=== PATIENT | female | born 1970 | race Two or more races ===

== ENCOUNTER → 2016-09-16 | Day surgery (SDC) | payer OTHER ==
--- NOTE | 2016-09-16 15:58 | RADIOLOGY REPORT (SQ) ---
EXAM DESCRIPTION: ARTHRO ELBOW INJECTION; FLUORO/NEEDLE PLACEMENT COMPLETED DATE/TIME: 09/16/2016 3:16 pm REASON FOR STUDY: DISP FX OF HEAD OF LEFT RADIUS S52.122A DISP FX OF HEAD OF LEFT RADIUS, INIT FOR CLOS FX COMPARISON: None. FLUOROSCOPY TIME: 0.4 minute 4 images saved to PACS. LIMITATIONS: None PROCEDURE: Procedure, risks, benefits and alternatives explained to patient who then gave written c onsent. The left elbow was marked and a time-out was called for correct marking verification. Entry site marked using fluoroscopic guidance. Elbow prepped and draped using sterile technique. Local a nesthesia achieved using 1% lidocaine injection. Hypodermic needle introduced into the joint space under direct fluoroscopic visualization. Non-ionic contrast instilled to confirm intra-articular pos ition. Dilute gadolinium solution then injected. Needle removed and entry site covered with steril e bandage. No immediate complications noted. TECHNIQUE: Digital images acquired during fluoroscopy and stored on PACS. Patient immediately take n to the MR suite for additional imaging. INJECTION LOCATION: Left elbow CONTRAST TYPE AND AMOUNT: 2 mL of Isovue. 2-3 mL of dilute ProHance IMPRESSION: SUCCESSFUL NEEDLE PLACEMENT AND INJECTION FOR LEFT ELBOW MR ARTHROGRAM. COMMENT: Quality ID [id number]: Final reports for procedures using fluoroscopy that document radiation exp osure indices, or exposure time and number of fluorographic images (if radiation exposure indices are not available) TECHNICAL DOCUMENTATION: JOB ID: [id number] [employer]- All Rights Reserved
--- NOTE | 2016-09-16 19:49 | RADIOLOGY REPORT (SQ) ---
EXAM DESCRIPTION: MRI LT UPPER JOINT WITH COMPLETED DATE/TIME: 09/16/2016 3:57 pm REASON FOR STUDY: DISP FX OF HEAD OF LEFT RADIUS S52.122A DISP FX OF HEAD OF LEFT RADIUS, INIT FOR CLOS FX COMPARISON: None. TECHNIQUE: Leftelbow images acquired and stored on PACS. Multiplanar images to include fat sensitive sequences as T1, fluid sensitive sequences as T2/STIR, cartilage sensitive sequences as FSPD, and co ntrast sensitive sequences as FST1. LIMITATIONS: None. FINDINGS: BONE MARROW: Mild marrow edema along the posterolateral radial head. Subtle impaction fra cture is suggested here. JOINT DISTENSION: Adequate. No loose bodies. MEDIAL COLLATERAL LIGAMENT COMPLEX: Thickening and ill definition of the proximal aspect of the media l collateral ligament. Regional edema or scar without jb disruption or extravasated in contrast s uggested. MEDIAL EPICONDYLE AND COMMON FLEXOR TENDON: No marrow edema. Common flexor tendon intact. There is patchy edema in the flexor muscles. LATERAL COLLATERAL LIGAMENT: Intact. LATERAL EPICONDYLE AND COMMON EXTENSOR TENDON: Intact. LATERAL ULNAR COLLATERAL LIGAMENT: Irregular fraying and tear. BICEPS TENDON: Intact. TRICEPS TENDON: Intact. ULNAR NERVE: No abnormal signal within the nerve. No enlargement. No regional edema detected. ADJACENT SOFT TISSUES: Appropriate vascular flow voids. Mild edema in the extensor digitorum muscle proximally, potentially related to lateral approach arthrography. OTHER: No other significant finding. IMPRESSION: 1. Lateral ulnar collateral ligament irregular tear. 2. Small area of subtle fracture deformity in the posterolateral radial head. 3. Probable sprain of the medial collateral ligament. 4. Strain, edema in forearm flexors. TECHNICAL DOCUMENTATION: JOB ID: [id number] [employer]- All Rights Reserved
== END ==
LOC: RAD 13:41
PROVIDERS: ATTEND Family Medicine
PROC: BP0 Imaging, Non-Axial Upper Bones, Plain Radiography (ICD-10-PCS; principal; 2016-09-16)
DX: S52.122A Displaced fracture of head of left radius, initial encounter for closed fracture (principal); X58.XXXA Exposure to other specified factors, initial encounter
CPT/HCPCS: 73222; 77002; 24220; A9576

== ENCOUNTER → 2017-08-01 | Emergency (ER) | payer OTHER ==
[~2017-08-01] MED LIST: DEXTROSE 5%-1/2 NORMAL SALINE 1,000 ML IV ONE; FAMOTIDINE INJ/PF 20 MG/2 ML SDV IV ONE; HYDROMORPHONE HCL INJ/PF 2 MG/ML AMPULE IV ONE; HYDROMORPHONE HCL INJ/PF 2 MG/ML AMPULE ONE; KETOROLAC TROMETHAMINE INJ/PF 30 MG/1 ML SDV IV ONE; NORMAL SALINE 1000 ML 1,000 ML IV ONE; ONDANSETRON HCL INJ/PF 4 MG/2 ML SDV IV ONE; TAMSULOSIN HCL 0.4 MG CAP.SR.24H PO ONE
--- NOTE | 2017-08-01 11:17 | ER Document Report ---
ED GI/ - General Chief Complaint: Abdominal Distention Stated Complaint: ABDOMINAL PAIN Time Seen by Provider: 08/01/17 11:12 Notes: 47-year-old female to the emergency department with chief complaint of pain. Patient states that she was at work when she had sudden onset of severe abdominal pain. States that her abdomen started feeling very bloated. States that she had a bowel movement this morning. Pain was so bad had to take ambulance, nothing makes it better or worse. 911 was called. 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 TRAVEL OUTSIDE OF THE [place] IN LAST 30 DAYS: No - HPI Patient complains to provider of: Abdominal pain Onset: Just prior to arrival Timing/Duration: Sudden Quality of pain: Cramping, Stabbing Severity at maximum: Severe Severity in ED: Severe Pain Level: 5 Context: denies: Bad food, Lifting, Out of the country travel, , Recent trauma, Other Location: Other - Diffuse - Related Data Allergies/Adverse Reactions: No Known Allergies Allergy (Unverified 08/01/17 11:24) Past Medical History - General Information source: Patient - Social History Smoking Status: Never Smoker Frequency of alcohol use: None Drug Abuse: None Lives with: Family Family History: Reviewed & Not Pertinent - Medical History Medical History: Negative Review of Systems - Review of Systems Constitutional: No symptoms reported EENT: No symptoms reported Cardiovascular: No symptoms reported Respiratory: No symptoms reported Gastrointestinal: See HPI, Abdomen distended, Abdominal pain, Nausea Genitourinary: No symptoms reported Female Genitourinary: No symptoms reported Musculoskeletal: No symptoms reported Skin: No symptoms reported Hematologic/Lymphatic: No symptoms reported Neurological/Psychological: No symptoms reported Physical Exam - Vital signs Interpretation: Hypertensive, Tachycardic - General General appearance: Appears well, Alert, Anxious In distress: Moderate - HEENT Head: Normocephalic, Atraumatic Eyes: Normal Pupils: PERRL - Respiratory Respiratory status: No respiratory distress Chest status: Nontender Breath sounds: Normal Chest palpation: Normal - Cardiovascular Rhythm: Tachycardia Heart sounds: Normal auscultation Murmur: No - Abdominal Inspection: Normal Distension: No distension Bowel sounds: Normal Tenderness: Tender. No: Guarding, Rebound Organomegaly: No organomegaly - Back Back: Normal, Nontender - Extremities General upper extremity: Normal inspection, Nontender, Normal color, Normal ROM , Normal temperature General lower extremity: Normal inspection, Nontender, Normal color, Normal ROM , Normal temperature, Normal weight bearing. No: Danyell's sign - Neurological Neuro grossly intact: Yes Cognition: Normal Orientation: AAOx4 Shakeel Coma Scale Eye Opening: Spontaneous [place] Coma Scale Verbal: Oriented [place] Coma Scale Motor: Obeys Commands [place] Coma Scale Total: 15 Speech: Normal Motor strength normal: LUE, RUE, LLE, RLE Sensory: Normal - Psychological Associated symptoms: Normal affect, Normal mood - Skin Skin Temperature: Warm Skin Moisture: Dry Skin Color: Normal Course - Re-evaluation Re-evalutation: 08/01/17 11:17 Uncertain etiology of patient's symptoms. Questionable distention according to patient but no significant distention on physical exam. Hyperactive bowel sounds. Stat bedside ultrasound performed which did not show any significant free fluid in the pelvis or in the right upper quadrant. Will order stat CT scan without contrast to look for possible kidney stone this is negative may repeat CT scan with IV contrast. 08/01/17 14:39 Patient still complaining of pain in holding her right upper quadrant. CT concerning in my opinion for fairly dilated stomach concerning for possible gastric outlet obstruction. Consulted with the radiologist with regards to my concerns but radiologist did not feel that this was clearance representative of an obstruction. I ordered an ultrasound of the abdomen because because most of her pain is in the right upper quadrant. Ultrasound shows a uric acid stone in the right kidney but no obvious dysfunction of the gallbladder. At this time I feel uncomfortable stating that this is not a real presentation this patient seems quite reliable. I am asking surgery to see patient and recommendations and at this time. 08/01/17 14:47 At this time patient is still quite uncomfortable. I am ordering a upper GI. Will reassess. 08/01/17 15:18 Surgeon has seen patient, Dr. Ba. He is in agreement with me that patient is concerning for a gastric outlet obstruction. Will place an NG tube in. Keep n.p.o. and will get upper GI. Currently immediate upper GI is unavailable and will not be available until 5 PM 08/01/17 15:58 Dr. Ba is seen the patient. Recommends nasogastric tube insertion. NG tube was placed. Radiology expecting to arrive around 1700 upper GI and small bowel series. 08/01/17 15:58 Abdomen/Pelvis CT 08/01/17 11:13 IMPRESSION: Diffuse diverticulosis. No acute findings. Abdomen Ultrasound 08/01/17 12:33 IMPRESSION: Probable 4 mm uric acid stone in the right kidney. No hydronephrosis. Laboratory 08/01/17 08/01/17 08/01/17 11:00 11:00 11:00 WBC 9.4 RBC 4.35 Hgb 15.1 Hct 44.2 MCV 102 H MCH 34.9 H MCHC 34.3 RDW 13.3 Plt Count 327 Seg Neutrophils % 74.6 Lymphocytes % 19.5 Monocytes % 4.2 Eosinophils % 1.3 Basophils % 0.4 Absolute Neutrophils 7.0 Absolute Lymphocytes 1.8 Absolute Monocytes 0.4 Absolute Eosinophils 0.1 Absolute Basophils 0.0 Sodium 144.1 Potassium 4.4 Chloride 105 Carbon Dioxide 29 Anion Gap 10 BUN 22 H Creatinine 0.71 Est GFR ( Amer) > 60 Est GFR (Non-Af Amer) > 60 Glucose 91 Calcium 9.6 Total Bilirubin 0.2 Direct Bilirubin 0.2 Neonat Total Bilirubin Not Reportable Neonat Direct Bilirubin Not Reportable Neonat Indirect Bili Not Reportable AST 32 ALT 41 Alkaline Phosphatase 49 Troponin I < 0.012 Total Protein 7.4 Albumin 4.5 Lipase 188.1 Urine Color Urine Appearance Urine pH Ur Specific [place] Urine Protein Urine Glucose (UA) Urine Ketones Urine Blood Urine Nitrite Urine Bilirubin Urine Urobilinogen Ur Leukocyte Esterase Urine WBC (Auto) Urine RBC (Auto) Squamous Epi Cells Auto Urine Mucus (Auto) Urine Ascorbic Acid Urine HCG, Qual 08/01/17 11:15 WBC RBC Hgb Hct MCV MCH MCHC RDW Plt Count Seg Neutrophils % Lymphocytes % Monocytes % Eosinophils % Basophils % Absolute Neutrophils Absolute Lymphocytes Absolute Monocytes Absolute Eosinophils Absolute Basophils Sodium Potassium Chloride Carbon Dioxide Anion Gap BUN Creatinine Est GFR ( Amer) Est GFR (Non-Af Amer) Glucose Calcium Total Bilirubin Direct Bilirubin Neonat Total Bilirubin Neonat Direct Bilirubin Neonat Indirect Bili AST ALT Alkaline Phosphatase Troponin I Total Protein Albumin Lipase Urine Color YELLOW Urine Appearance CLEAR Urine pH 5.[address] [place] 1.016 Urine Protein NEGATIVE Urine Glucose (UA) NEGATIVE Urine Ketones NEGATIVE Urine Blood SMALL H Urine Nitrite NEGATIVE Urine Bilirubin NEGATIVE Urine Urobilinogen NEGATIVE Ur Leukocyte Esterase NEGATIVE Urine WBC (Auto) 0 Urine RBC (Auto) 0 Squamous Epi Cells Auto 1 Urine Mucus (Auto) RARE Urine Ascorbic Acid NEGATIVE Urine HCG, Qual NEGATIVE 08/01/17 16:05 NG tube has been placed. Dr. Ba was general surgery is following. Awaiting small bowel follow-through study and upper GI study. If everything looks negative will follow advise the surgeon but more likely patient will need to be admitted. Will consult with my colleague Dr. Perez for following the patient and looking at the results of the GI studies and admit versus discharge. Discharge information has been applied and prescriptions have been written in the event that she is discharged but more likely patient will need to be admitted. - Laboratory Result Diagrams: 08/01/17 11:00 08/01/17 11:00 Laboratory results interpreted by me: 08/01/17 08/01/17 08/01/17 11:00 11:00 11:15 MCV 102 H MCH 34.9 H BUN 22 H Urine Blood SMALL H - EKG Interpretation by Me EKG shows normal: Sinus rhythm, [place], Intervals, QRS Complexes, ST-T Waves Discharge - Discharge Clinical Impression: Acute abdominal pain in right upper quadrant Condition: Good Instructions: Abdominal Pain ([facility]), Pain Medication Injection ([facility]), Toradol Injection ([facility]), Antinausea Medication ([facility]) Additional Instructions: Please return in 12 or 24 hours for worsening abdominal pain. It will be very important that you follow-up with your regular doctor for repeat evaluation in the event that you are discharged home. If you are unable to be seen by your regular doctor and you feel like your pain is not getting better but getting worse please return. We will reevaluate you in the emergency department. Prescriptions: Docusate Sodium [Colace 100 mg Capsule] 100 mg PO BID 15 Days #30 capsule Hydrocodone/Acetaminophen [[place] 5-325 mg Tablet] 1 tab PO TID PRN 3 Days #9 tablet PRN Reason: Ondansetron [Zofran Odt 4 mg Tablet] 1 - 2 tab PO Q4H PRN #15 tab.rapdis PRN Reason: For Nausea/Vomiting Referrals: ERIK BA MD [ACTIVE STAFF] - Follow up in 3-5 days KIMBERLY BOURNE MD [Primary Care Provider] - 08/02/17 8:00 am
--- NOTE | 2017-08-01 11:56 | RADIOLOGY REPORT (SQ) ---
EXAM DESCRIPTION: CT ABD/PELVIS NO ORAL OR IV COMPLETED DATE/TIME: 08/01/2017 11:36 am REASON FOR STUDY: abdominal pain COMPARISON: None. TECHNIQUE: CT scan of the abdomen and pelvis performed without intravenous or oral contrast. Images reviewed with lung, soft tissue, and bone windows. Reconstructed coronal and sagittal MPR images revi ewed. All images stored on PACS. All CT scanners at this facility use dose modulation, iterative reconstruction, and/or weight based d osing when appropriate to reduce radiation dose to as low as reasonably achievable (ALARA). [facility]: Dose Right [facility]: CareDose [facility]: Dose Right [facility]: Teradose 4D [facility]: [employer] RADIATION DOSE: CT Rad equipment meets quality standard of care and radiation dose reduction techniq ues were employed. CTDIvol: 7.3 mGy. DLP: 391 mGy-cm.mGy. LIMITATIONS: None. FINDINGS: LOWER CHEST: No significant findings. No nodules or infiltrates. NON-CONTRASTED LIVER, SPLEEN, ADRENALS: Evaluation limited by lack of IV contrast. No identified sign ificant masses. PANCREAS: No masses. No peripancreatic inflammatory changes. GALLBLADDER: No identified stones by CT criteria. No inflammatory changes to suggest cholecystitis. RIGHT KIDNEY AND URETER: No suspicious masses. Assessment limited by lack of IV contrast. No signif icant calcifications. No hydronephrosis or hydroureter. LEFT KIDNEY AND URETER: No suspicious masses. Assessment limited by lack of IV contrast. No signifi cant calcifications. No hydronephrosis or hydroureter. AORTA AND RETROPERITONEUM: No aneurysm. No retroperitoneal masses or adenopathy. BOWEL AND PERITONEAL CAVITY: Diffuse diverticulosis, more so in the descending and sigmoid colon. No inflammatory changes. No ascites or free air. APPENDIX: Surgically absent. PELVIS, BLADDER, AND ABDOMINAL WALL:No abnormal masses. No free fluid. Bladder normal. BONES: No significant findings. OTHER: No other significant finding. IMPRESSION: Diffuse diverticulosis. No acute findings. COMMENT: Quality ID # [id number]: Final reports with documentation of one or more dose reduction techniques (e.g., Automated exposure control, adjustment of the mA and/or kV according to patient size, use of iterative reconstruction technique) TECHNICAL DOCUMENTATION: JOB ID: [id number] [employer]- All Rights Reserved Reading location - IP/workstation name: [email or web address]
[2017-08-01 12:07] LABS: APPEARANCE,URINE CLEAR; BILIRUBIN,URINE NEGATIVE (NEGATIVE); COLOR,URINE YELLOW; GLUCOSE, URINE NEGATIVE (NEGATIVE); KETONES,URINE NEGATIVE (NEGATIVE); LEUKOCYTE ESTERASE,URINE NEGATIVE (NEGATIVE); NITRITE,URINE NEGATIVE (NEGATIVE); PROTEIN,URINE NEGATIVE (NEGATIVE); URINE SPECIFIC GRAVITY 1.016; UROBILINOGEN,URINE NEGATIVE mg/dL (<2.0)
[2017-08-01 12:58] LABS: ABSOLUTE EOSINOPHILS # (AUTO) 0.1 10^3/uL (0.0-0.6); ABSOLUTE LYMPHOCYTES (AUTO) 1.8 10^3/uL (0.5-4.7); ABSOLUTE MONOCYTES (AUTO) 0.4 10^3/uL (0.1-1.4); BASOPHILS % (AUTO) 0.4 % (0-2); EOSINOPHILS % (AUTO) 1.3 % (0-6); HEMATOCRIT 44.2 % (36.0-47.0); HEMOGLOBIN 15.1 g/dL (12.0-15.5); LYMPHOCYTES % (AUTO) 19.5 % (13-45); MEAN CORPUSCULAR HEMOGLOBIN 34.9 pg (27.0-33.4); MEAN CORPUSCULAR HGB CONC 34.3 g/dL (32.0-36.0); MEAN CORPUSCULAR VOLUME 102 fl (80-97); MONOCYTES % (AUTO) 4.2 % (3-13); PLATELET COUNT 327 10^3/uL (150-450); RED BLOOD COUNT 4.35 10^6/uL (3.72-5.28); RED CELL DISTRIBUTION WIDTH 13.3 % (11.5-14.0); SEGMENTED NEUTROPHILS % (AUTO) 74.6 % (42-78); TOTAL CELLS COUNTED % (AUTO) 100 %; WHITE BLOOD COUNT 9.4 10^3/uL (4.0-10.5)
[2017-08-01 13:03] LABS: ALANINE AMINOTRANSFERASE 41 U/L (9-52); ALBUMIN 4.5 g/dL (3.5-5.0); ALKALINE PHOSPHATASE 49 U/L (38-126); ANION GAP 10 (5-19); ASPARTATE AMINO TRANSFERASE 32 U/L (14-36); BILIRUBIN,DIRECT 0.2 mg/dL (0.0-0.4); BILIRUBIN,TOTAL 0.2 mg/dL (0.2-1.3); BLOOD UREA NITROGEN 22 mg/dL (7-20); CALCIUM 9.6 mg/dL (8.4-10.2); CARBON DIOXIDE 29 mmol/L (22-30); CHLORIDE 105 mmol/L (98-107); GLUCOSE 91 mg/dL (75-110); LIPASE 188.1 U/L (23-300); POTASSIUM 4.4 mmol/L (3.6-5.0); SODIUM 144.1 mmol/L (137-145); TOTAL PROTEIN 7.4 g/dL (6.3-8.2)
--- NOTE | 2017-08-01 13:35 | RADIOLOGY REPORT (SQ) ---
EXAM DESCRIPTION: U/S ABDOMEN LIMITED W/O DOP COMPLETED DATE/TIME: 08/01/2017 1:20 pm REASON FOR STUDY: ruq pain COMPARISON: None. TECHNIQUE: Dynamic and static grayscale images acquired of the abdomen and recorded on PACS. Renano nal selected color Doppler and spectral images recorded. LIMITATIONS: None. FINDINGS: PANCREAS: No masses. Visualized pancreatic duct normal caliber. LIVER: No masses. Echotexture normal. LIVER VASCULATURE: Normal directional flow of the main portal vein and hepatic veins. GALLBLADDER: No stones. Normal wall thickness. No pericholecystic fluid. ULTRASOUND-DETECTED GARRETT'S SIGN: Negative. INTRAHEPATIC DUCTS AND COMMON DUCT: CBD and intrahepatic ducts normal caliber. No filling defects. INFERIOR VENA CAVA: Normal flow. AORTA: No aneurysm. RIGHT KIDNEY: Normal size. Normal echogenicity. No solid or suspicious masses. No hydronephros is. 4 mm hyperechoic lesion with no posterior shadowing. This probably is a small uric acid stone which are not visualized on CT. PERITONEAL AND RIGHT PLEURAL SPACE: No ascites or effusions. OTHER: No other significant findings. IMPRESSION: Probable 4 mm uric acid stone in the right kidney. No hydronephrosis. TECHNICAL DOCUMENTATION: JOB ID: [id number] [employer]- All Rights Reserved Reading location - IP/workstation name: [email or web address]
--- NOTE | 2017-08-01 16:36 | RADIOLOGY REPORT (SQ) ---
EXAM DESCRIPTION: KUB/ABDOMEN (SINGLE VIEW) COMPLETED DATE/TIME: 08/01/2017 4:16 pm REASON FOR STUDY: NG tube placement COMPARISON: None. NUMBER OF VIEWS: One view. TECHNIQUE: Supine radiographic image of the abdomen acquired. LIMITATIONS: None. FINDINGS: NG tube is present tip overlying the cardiac portion of the stomach with side port slightl y above the gastroesophageal junction, could be advanced approximately 8-10 cm for more ideal placeme nt. Lungs are clear. Scattered bowel gas over the upper abdomen. OTHER: No other significant finding. IMPRESSION: NG tube is present tip overlying the cardiac portion of the stomach with side port sligh tly above the gastroesophageal junction, could be advanced approximately 8-10 cm for more ideal place ment. TECHNICAL DOCUMENTATION: JOB ID: [id number] 2010 [employer]- All Rights Reserved Reading location - IP/workstation name: [email or web address]
--- NOTE | 2017-08-01 17:31 | PDOC H&P ---
History of Present Illness Admission Date/PCP: 08/01/17 16:49 KIMBERLY BOURNE MD Patient complains of: Right upper quadrant abdominal pain, nausea. History of Present Illness: ARCHANA WASSERMAN is a 47 year old female with a 2-3 day history of intermittent right upper quadrant abdominal pain. Today, her pain became severe and unrelenting. She reports a sharp, stabbing pain in her right upper quadrant. It does not radiate. Her abdomen has become distended. The patient reports " It looks like I am ". Nothing makes her pain better. Palpation and movement make her pain worse. Patient has had severe nausea, but has not vomited. The patient has not eaten since 8 AM. Patient denies any history of ingestion of undigestible materials (hair, plastic, etc.). She denies the use of caffeine, nicotine, alcohol, steroids. She has taken ibuprofen for approximately 1 week. No more than 1-2 doses per day. Past Medical History Renal/ Medical History: Reports: Other - Uterine fibroids Past Surgical History Past Surgical History: Reports: Tubal Ligation Social History Lives with: Family Smoking Status: Never Smoker Family History Family History: Reviewed & Not Pertinent Parental Family History Reviewed: Yes Children Family History Reviewed: Yes Sibling(s) Family History Reviewed.: Yes Medication/Allergy Home Medications: Docusate Sodium [Colace 100 mg Capsule] 100 mg PO BID 15 Days #30 capsule Hydrocodone/Acetaminophen [[place] 5-325 mg Tablet] 1 tab PO TID PRN 3 Days #9 tablet 08/01/17 Ondansetron [Zofran Odt 4 mg Tablet] 1 - 2 tab PO Q4H PRN #15 tab.rapdis Allergies/Adverse Reactions: No Known Allergies Allergy (Unverified 08/01/17 11:24) Review of Systems Constitutional: ABSENT: chills, fatigue, fever(s) Eyes: ABSENT: visual disturbances Ears: ABSENT: hearing changes Nose, Mouth, and Throat: ABSENT: sore throat Cardiovascular: ABSENT: chest pain, dyspnea on exertion, edema, palpitations Respiratory: ABSENT: cough, dyspnea, hemoptysis Gastrointestinal: PRESENT: abdominal pain, bloating, nausea. ABSENT: vomiting Genitourinary: PRESENT: hematuria - Recently treated and resolved. Musculoskeletal: ABSENT: deformity, joint swelling Integumentary: ABSENT: erythema, pruritus, rash Neurological: ABSENT: abnormal speech, confusion, lack of coordination, memory loss, tingling, tremor(s) Psychiatric: ABSENT: anxiety, depression, hallucinations Endocrine: ABSENT: cold intolerance, heat intolerance Hematologic/Lymphatic: ABSENT: easy bleeding, easy bruising Physical Exam General appearance: PRESENT: cooperative, mild distress, well-developed Head exam: PRESENT: atraumatic, normocephalic Eye exam: PRESENT: EOMI, PERRLA Mouth exam: PRESENT: moist, neck supple Neck exam: ABSENT: lymphadenopathy, meningismus, tenderness, thyromegaly, tracheal deviation Respiratory exam: PRESENT: clear to auscultation praveena. ABSENT: accessory muscle use, chest wall tenderness, rales, retraction, rhonchi, stridor, tachypnea, wheezes Cardiovascular exam: PRESENT: tachycardia - Mild Pulses: PRESENT: normal radial pulses Vascular exam: PRESENT: normal capillary refill. ABSENT: pallor GI/Abdominal exam: PRESENT: distended, tenderness - Moderate tenderness without signs of peritonitis.. ABSENT: guarding, rebound Extremities exam: ABSENT: joint swelling, pedal edema, tenderness Musculoskeletal exam: PRESENT: normal inspection Neurological exam: PRESENT: alert, awake, oriented to person, oriented to place , oriented to time, oriented to situation, reflexes normal, CN II-XII grossly intact, motor sensory deficit, normal gait Psychiatric exam: PRESENT: anxious. ABSENT: agitated, depressed Skin exam: PRESENT: normal color. ABSENT: cyanosis, erythema, jaundice Results Impressions: KUB X-Ray 08/01/17 00:00 IMPRESSION: NG tube is present tip overlying the cardiac portion of the stomach with side port slightly above the gastroesophageal junction, could be advanced approximately 8-10 cm for more ideal placement. Abdomen/Pelvis CT 08/01/17 11:13 IMPRESSION: Diffuse diverticulosis. No acute findings. Abdomen Ultrasound 08/01/17 12:33 IMPRESSION: Probable 4 mm uric acid stone in the right kidney. No hydronephrosis. Assessment & Plan - Diagnosis (1) Acute abdominal pain in right upper quadrant Is this a current diagnosis for this admission?: Yes (2) Gastric outflow obstruction Is this a current diagnosis for this admission?: Yes - Plan Summary Plan Summary: This is a 47-year-old female with right upper quadrant abdominal pain severe nausea. I have reviewed her CT scan personally. She is a very dilated stomach with nondilated small bowel. She is diaphoretic and nauseated. I suspect she is experiencing acute gastric distention. Reason for this is currently unknown. She may be experiencing a gastric outlet obstruction of some kind. Right upper quadrant ultrasound is essentially normal, aside from a renal stone. I will admit the patient, administer IV fluids, and obtain an upper GI series. This will help ascertain the presence of a gastric outlet obstruction. Further recommendations will depend on patient's workup, which is ongoing.
--- NOTE | 2017-08-01 17:54 | EKG REPORT ---
SEVERITY:- NORMAL ECG - SINUS RHYTHM : Confirmed by: Alexander Lindsey MD 01-Aug-2017 17:54:33
--- NOTE | 2017-08-01 18:33 | RADIOLOGY REPORT (SQ) ---
EXAM DESCRIPTION: UGI SERIES COMPLETED DATE/TIME: 08/01/2017 6:17 pm REASON FOR STUDY: Abdominal pain COMPARISON: CT of the abdomen dated 08/01/2017. TECHNIQUE: Under fluoroscopic guidance, patient ingested water soluble contrast. Fluoroscopic spot i mages and routine radiographic images acquired and stored on PACS. 12 MM BARIUM TABLET GIVEN: No. LIMITATIONS: Patient reported significant bloating during procedure. Contrast was stopped at 200 cc due to discomfort. FLUOROSCOPY TIME: FLUORO TIME: 2 minutes 22 images saved to PACS. FINDINGS: NEUROMUSCULAR COORDINATION OF SWALLOW: NG tube in place, not evaluated. ESOPHAGEAL MOTILITY: Unable to evaluate due to NG-tube. ESOPHAGEAL MUCOSA: Not evaluated due to NG-tube. GASTRO-ESOPHAGEAL JUNCTION: No hiatal hernia or reflux. STOMACH: Normal without masses or ulcerations. GASTRIC OUTLET: Significant delay in emptying. Narrowing pylorus. DUODENAL BULB: Unable to evaluate due to lack contrast. DUODENUM: Unable to evaluate due to lack of contrast. PROXIMAL JEJUNUM: Unable to evaluate due to lack contrast. NON-GI TRACT STRUCTURES: NG-tube was noted on prior study. OTHER: No other significant finding. IMPRESSION: Narrowing at the pylorus with significant delay in emptying. Recommend direct visualiza tion for better characterization. COMMENT: Quality ID [id number]: Final reports for procedures using fluoroscopy that document radiation exp osure indices, or exposure time and number of fluorographic images (if radiation exposure indices are not available) TECHNICAL DOCUMENTATION: JOB ID: [id number] [employer]- All Rights Reserved Reading location - IP/workstation name: [email or web address]
== END | disposition left against medical advice (07) ==
LOC: ER 10:55 → UNDOADMIN 16:49 → EH 16:49 → UNDODISIN 19:15
DX: R10.11 Right upper quadrant pain (principal); K56.699 Other intestinal obstruction unspecified as to partial versus complete obstruction; R14.0 Abdominal distension (gaseous)
CPT/HCPCS: 93005; 36415; 83690; 85025; 81025; 80053; 81001; 84484; 74247; 74018; 76705; 74176; 93010; J1885; J1170; J2405; J7030; S0028

== ENCOUNTER 2017-12-05 13:52 | Emergency (ER) | payer OTHER ==
[2017-12-05] MEDS ORDERED: ONDANSETRON HCL INJ/PF 4 MG/2 ML SDV IV ONE (14:24)
[2017-12-05] MEDS ORDERED: MORPHINE SULFATE 10 MG/ML INJ IV ONE ×2 (14:24→17:09)
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
[2017-12-05 15:38] LABS: ABSOLUTE BASOPHILS # (AUTO) 0.1 10^3/uL (0.0-0.2); ABSOLUTE EOSINOPHILS # (AUTO) 0.1 10^3/uL (0.0-0.6); ABSOLUTE LYMPHOCYTES (AUTO) 2.5 10^3/uL (0.5-4.7); ABSOLUTE MONOCYTES (AUTO) 0.9 10^3/uL (0.1-1.4); ABSOLUTE NEUT (AUTO) 7.1 10^3/uL (1.7-8.2); BASOPHILS % (AUTO) 1.2 % (0-2); EOSINOPHILS % (AUTO) 0.5 % (0-6); HEMATOCRIT 42.7 % (36.0-47.0); HEMOGLOBIN 14.7 g/dL (12.0-15.5); LYMPHOCYTES % (AUTO) 23.3 % (13-45); MEAN CORPUSCULAR HEMOGLOBIN 33.8 pg (27.0-33.4); MEAN CORPUSCULAR HGB CONC 34.5 g/dL (32.0-36.0); MEAN CORPUSCULAR VOLUME 98 fl (80-97); MONOCYTES % (AUTO) 8.2 % (3-13); PLATELET COUNT 343 10^3/uL (150-450); RED BLOOD COUNT 4.36 10^6/uL (3.72-5.28); RED CELL DISTRIBUTION WIDTH 14.6 % (11.5-14.0); SEGMENTED NEUTROPHILS % (AUTO) 66.8 % (42-78); TOTAL CELLS COUNTED % (AUTO) 100 %; WHITE BLOOD COUNT 10.6 10^3/uL (4.0-10.5)
[2017-12-05 15:45] LABS: INTERNATIONAL RATION (INR) 0.88; PROTHROMBIN TIME 12.4 SEC (11.4-15.4)
[2017-12-05 16:04] LABS: ANION GAP 13 (5-19); BLOOD UREA NITROGEN 14 mg/dL (7-20); CALCIUM 9.7 mg/dL (8.4-10.2); CARBON DIOXIDE 21 mmol/L (22-30); CHLORIDE 108 mmol/L (98-107); GLUCOSE 81 mg/dL (75-110); POTASSIUM 4.1 mmol/L (3.6-5.0)
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
[2017-12-05 17:35] VITALS: BP 176/103
[2017-12-05 17:49] LABS: APPEARANCE,URINE CLEAR; BILIRUBIN,URINE NEGATIVE (NEGATIVE); COLOR,URINE YELLOW; GLUCOSE, URINE NEGATIVE (NEGATIVE); KETONES,URINE NEGATIVE (NEGATIVE); LEUKOCYTE ESTERASE,URINE NEGATIVE (NEGATIVE); NITRITE,URINE NEGATIVE (NEGATIVE); PROTEIN,URINE NEGATIVE (NEGATIVE); URINE SPECIFIC GRAVITY 1.008; UROBILINOGEN,URINE NEGATIVE mg/dL (<2.0)
[2017-12-05] MEDS ORDERED: OXYCODONE-ACETAMINOPHEN 5-325 MG TABLET PO ONE (18:13)
== END 2017-12-05 18:27 | disposition home or self-care (01) ==
LOC: ER 13:52
DX: R10.30 Lower abdominal pain, unspecified (principal); Y04.2XXA Assault by strike against or bumped into by another person, initial encounter; Y92.199 Unspecified place in other specified residential institution as the place of occurrence of the external cause; Y99.0 Civilian activity done for income or pay; I10 Essential (primary) hypertension; Z90.710 Acquired absence of both cervix and uterus
CPT/HCPCS: 96376; 99284; 96374; 96375; 36415; 85025; 85610; 85730; 80048; 81001; 74177; J2270; J2405

== ENCOUNTER 2020-01-07 12:09 | Emergency (ER) | payer OTHER ==
[2020-01-07] MEDS ORDERED: ONDANSETRON 4 MG TAB.RAPDIS PO ONE (13:05)
[2020-01-07] MEDS ORDERED: ACETAMINOPHEN 325 MG TABLET PO ONE (13:05)
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
[2020-01-07 14:21] VITALS: BP 163/91
== END 2020-01-07 14:21 | disposition home or self-care (01) ==
LOC: ER 12:09
DX: S06.0X0A Concussion without loss of consciousness, initial encounter (principal); R51.9 Headache, unspecified; Y04.2XXA Assault by strike against or bumped into by another person, initial encounter; Y92.199 Unspecified place in other specified residential institution as the place of occurrence of the external cause; Y99.0 Civilian activity done for income or pay; M47.812 Spondylosis without myelopathy or radiculopathy, cervical region; M50.30 Other cervical disc degeneration, unspecified cervical region; I10 Essential (primary) hypertension; Z79.899 Other long term (current) drug therapy
CPT/HCPCS: 99285; 70450; 72125; S0119